=== PATIENT | male | born 1955 | race Caucasian/White ===

== ENCOUNTER 2017-03-13 17:37 | Inpatient (IN) | payer SELFPAY ==
[~2017-03-13] VITALS: Ht 172.7 cm; Wt 73.0 kg
[2017-03-13 17:38] VITALS: BP 144/87; PULSE 91; RESP 20; TEMP 98.5; O2SAT 100
[2017-03-13] MEDS ORDERED: ASPIRIN 81 MG CHEW TAB PO ONE (18:15)
[2017-03-13] MEDS ORDERED: NITROGLYCERIN 0.4 MG SL 25 TABS/BTL SL STA (18:24)
[2017-03-13] MEDS ORDERED: SODIUM CHLOR 0.9% 1000 ML INJ 1,000 ML IV ONE (18:24)
[2017-03-13] MEDS ORDERED: HEPARIN SODIUM - IV 10,000 UNITS/10 ML VIAL IV PUSH STA (18:24)
[2017-03-13] MEDS ORDERED: ASPIRIN 81 MG CHEW TAB PO STA (18:24)
[2017-03-13 18:30] VITALS: O2SAT 99
[2017-03-13] MEDS ORDERED: NITROGLYCERIN-D5W 50 MG/250 ML 250 ML IV PRN (18:30)
[2017-03-13] MEDS ORDERED: SODIUM CHLORIDE 0.9% FLUSH 10 ML FLUSH IVF PRN (18:30)
[2017-03-13] MEDS ORDERED: HEPARIN-NS/PF INJ 1,000 ML ONE (18:30)
[2017-03-13 18:34] VITALS: BP 201/98; PULSE 88; RESP 16; O2SAT 99
--- NOTE | 2017-03-13 18:34 | PD ---
HPI Chief Complaint: STEMI Alert Time Seen by Provider: 18:24 Travel History International Travel<30 days: No Contact w/Intl Traveler<30days: No Traveled to known affect area: No History of Present Illness HPI This is a 61-year-old male with history of tobacco use, and presents here with complaints of chest pressure with associated nausea. The patient states he was out jogging about 3 PM. He states shortly after coming back he felt nauseous and had severe chest discomfort. He states at worst it was an 8-10 out of 10 scale. He was given an aspirin upfront. He comes back now says it subsided somewhat but it still a 6 out of 10. There is no diaphoresis. Positive shortness of breath. The patient has no history of coronary disease. He takes no medication. [facility] Social History Tobacco Use: No Allergies-Medications (Allergen,Severity, Reaction): Coded Allergies: No Known Allergies (Unverified , 03/13/17) Review of Systems Except as stated in HPI: all other systems reviewed are Neg General / Constitutional: No: Fever, Chills HENT: No: Headaches, Lightheadedness, Neck Pain Cardiovascular: Positive: Chest Pain or Discomfort, No: Palpitations, Irregular Rhythm Respiratory: Positive: Shortness of Breath, No: Cough Gastrointestinal: No: Nausea, Vomiting, Abdominal Pain Musculoskeletal: No: Weakness, Pain Neurologic: No: Weakness, Dizziness, Headache Physical Exam Narrative GENERAL: Well developed well-nourished male who appears anxious and slightly diaphoretic. SKIN: Focused skin assessment warm/dry. HEAD: Atraumatic. Normocephalic. EYES: Pupils equal and round. No scleral icterus. No injection or drainage. ENT: No nasal bleeding or discharge. Mucous membranes pink and moist. NECK: Trachea midline. Supple. CARDIOVASCULAR: Regular rate and rhythm. No murmur appreciated. RESPIRATORY: No accessory muscle use. Clear to auscultation. Breath sounds equal bilaterally. GASTROINTESTINAL: Abdomen soft, non-tender, nondistended. MUSCULOSKELETAL: No obvious deformities. No clubbing. No cyanosis. No edema. NEUROLOGICAL: Awake and alert. No obvious cranial nerve deficits. Motor grossly within normal limits. Normal speech. Data Data Last Documented VS Vital Signs Date Time Temp Pulse Resp B/P (MAP) Pulse Ox O2 Delivery O2 Flow Rate FiO2 03/13/17 18:22 Nasal Cannula 2.00 03/13/17 17:38 98.5 91 20 144/87 (106) 100 Orders Orders Electrocardiogram (03/13/17 18:09) Basic Metabolic Panel (Bmp) (03/13/17 18:09) Ckmb (Isoenzyme) Profile (03/13/17 18:09) Complete Blood Count With Diff (03/13/17 18:09) Magnesium (Mg) (03/13/17 18:09) Prothrombin Time / Inr (Pt) (03/13/17 18:09) Act Partial Throm Time (Ptt) (03/13/17 18:09) Troponin I (03/13/17 18:09) Lipase (03/13/17 18:09) Aspirin Chew (Aspirin Chew) (03/13/17 18:15) Chest, Pa & Lat (03/13/17 18:09) Troponin I (03/13/17 18:24) Ckmb (Isoenzyme) Profile (03/13/17 18:24) I-Stat Profile (03/13/17 18:24) I-Stat Creatinine (03/13/17 18:24) Calcium (03/13/17 18:24) Magnesium (Mg) (03/13/17 18:24) Act Partial Throm Time (Ptt) (03/13/17 18:24) B-Type Natriuretic Peptide (03/13/17 18:24) Chest, Single Ap (03/13/17 18:24) Electrocardiogram (03/13/17 18:24) Oxygen Administration (03/13/17 18:24) Iv Access Insert/Monitor (03/13/17 18:24) Oximetry (03/13/17 18:24) Sodium Chlor 0.9% 1000 Ml Inj (Ns 1000 M (03/13/17 18:24) Sodium Chloride 0.9% Flush (Ns Flush) (03/13/17 18:30) Aspirin Chew (Aspirin Chew) (03/13/17 18:24) Nitroglycerin Sl (Nitrostat Sl) (03/13/17 18:24) Nitroglycerin-D5w 50 Mg/250 Ml (Nitrogly (03/13/17 18:30) Heparin Inj (Heparin Inj) (03/13/17 18:24) Cardiac Catheterization (03/13/17 18:27) MDM Medical Decision Making Medical Screen Exam Complete: Yes Emergency Medical Condition: Yes Differential Diagnosis ACS versus GERD versus musculoskeletal pain Narrative Course [id number] male presents here after feeling chest pain with associated nausea and shortness of breath after jogging. The patient has an obvious inferior wall ST elevation WI. Patient was made a STEMI alert. Case discussed with Dr. Chaudhry, on-call hat copyist for STEMI alerts. He is on his way in to take the patient to the Benefits Officer. The patient has been given aspirin in the triage area. He's also been given 4200 units of heparin. Diagnosis Primary Impression: ST elevation WI (STEMI) Additional Impression: Tobacco use Admitting Information Admitting Physician Requests: Admit Kiran Mock MD Mar 13, 2017 18:34
[2017-03-13 18:47] LABS: I-STAT POTASSIUM 4.8 MMOL/L (3.5-4.9)
[2017-03-13 18:50] VITALS: BP 167/89
[2017-03-13 18:51] LABS: AUTOMATED NEUTROPHIL # 15.9 TH/MM3 (1.8-7.7); BASOPHIL # 0.1 TH/MM3 (0-0.2); BASOPHIL % 0.3 % (0.0-2.0); EOSINOPHIL % 0.1 % (0.0-4.0); HEMATOCRIT 42.8 % (39.0-51.0); HEMO FLAGS DIFF FINAL; LYMPH % 10.6 % (9.0-44.0); MEAN CELL VOLUME 86.2 FL (80.0-100.0); MEAN CORPUSCULAR HEMOGLOBIN 30.5 PG (27.0-34.0); MEAN CORPUSCULAR HGB CONC 35.4 % (32.0-36.0); MONO % 4.3 % (0.0-8.0); NEUT % 84.7 % (16.0-70.0); PLATELET COUNT 306 TH/MM3 (150-450); RED BLOOD COUNT 4.97 MIL/MM3 (4.50-5.90); RED CELL DISTRIBUTION WIDTH 13.5 % (11.6-17.2); WHITE BLOOD COUNT 18.8 TH/MM3 (4.0-11.0)
[2017-03-13] MEDS ORDERED: IOHEXOL 350 MG/ML 100 ML BTL (for Cath Lab) OTHER ONE (18:54)
[2017-03-13 18:58] LABS: APTT (PATIENT) 24.8 SEC (24.3-30.1); INTERNATIONAL NORMALIZED RATIO 0.9 RATIO
[2017-03-13 19:02] LABS: ANION GAP 8 MEQ/L (5-15); BICARBONATE 28.5 MEQ/L (21.0-32.0); BLOOD UREA NITROGEN 16 MG/DL (7-18); CHLORIDE 102 MEQ/L (98-107); GLOMERULAR FILTRATION RATE 61 ML/MIN (>89); MAGNESIUM 2.2 MG/DL (1.5-2.5); POTASSIUM 4.7 MEQ/L (3.5-5.1); SODIUM (NA) 138 MEQ/L (136-145)
[2017-03-13 19:06] LABS: CREATINE KINASE 102 U/L (39-308)
--- NOTE | 2017-03-13 19:10 | RADRPT ---
EXAM DATE/TIME: 03/13/2017 18:33 [place] COMPARISON: No previous studies available for comparison. INDICATIONS : Stemi alert. Chest pain. MEDICAL HISTORY : None. SURGICAL HISTORY : None. ENCOUNTER: Initial ACUITY: 1 day PAIN SCORE: 2/10 LOCATION: chest FINDINGS: A single view of the chest demonstrates the lungs to be symmetrically aerated without evidence of mas s, infiltrate or effusion. The cardiomediastinal contours are unremarkable. Osseous structures are intact. CONCLUSION: No acute cardiopulmonary process. Parth Rodrigues MD on March 13, 2017 at 19:08 Board Certified Radiologist. This report was verified electronically.
[2017-03-13] MEDS ORDERED: SODIUM NITROPRUSSIDE 50 MG/2 ML VIAL ONE ×2 (19:11→19:16)
[2017-03-13] MEDS ORDERED: HEPARIN SODIUM - IV 10,000 UNITS/10 ML VIAL ONE (19:15)
[2017-03-13] MEDS ORDERED: PRASUGREL 10 MG TAB ONE (19:26)
[2017-03-13] MEDS ORDERED: TIROFIBAN INFUSION INJ 250 ML IV ONE (19:26)
[2017-03-13] MEDS ORDERED: HEPARIN-NS/PF INJ 500 ML ONE (19:34)
--- NOTE | 2017-03-13 19:49 | CATHPROC ---
[place] HIS Report Study Information Study Number Admission Scheduled Start Study Start [id number] Mar 13 2017 5:37PM 03/13/2017 Mar 13 2017 6:35PM [place] Service Cardiac Catheterization Admit Source Facility Department Emergency department [facility] - [facility] Physician and Clinical Staff Initial Tobias Steve Lumber Tripper Khadra Gutierrez RN Lumber Tripper Day Arce BSN Lumber Tripper Claudette Ovalles RN Lumber Tripper Magnolia Groves RN Recorder Brandee Ngo RT(R) (BS) Scrub Carmelo Michel RCIS(BS) Procedures Performed Procedure Location (Site) Vessel Name Coronary Angiograms LCA Left Coronary Coronary Angiograms RCA Right Coronary L Heart Cath LV Gram-hand inj. LV LV Ventricle Stent OM1 Prox CIRC Wire insertion Fem Art (right) Femoral Art Equipment Time Top Executive Description Size Mfg Part Number Used/Scraped [id number] 19:07 [employer] WIRE, ASAHI PROWATER 180CM 180CM Used *[id number] TRANSDUCER, TRUWAVE [id number] 19:05 LANDAVERDE CORTES * Used W/STOCKCOCK *[id number] [id number] *[phone] *[id number] [id number] *[id number] [phone] *[id number] [phone] *[id number] [phone] *[id number] 19:05 [employer] INDUSTRIES PACK, CCL CUSTOM * Used *[id number] 19:04 [employer] PACER PEN, SKIN DUAL W/ RULER * Used *[id number] 19:20 [employer] BALLOON, 2.0 X 6MM EUPHORA 6MM Used *[id number] 19:16 [employer] BALLOON, 2.0 X 6MM EUPHORA 6MM Used *[id number] 19:22 [employer] STENT, 2.5 12 INTEGRITY 2.5 12 Used *[id number] 19:24 [email or web address] MEDICAL 30 EUGENIO INDEFLATOR Used *[id number] 19:05 [email or web address] MEDICAL SHEATH, FR6.5 PRELUDE 11CM FR 6.5 038ACT Used *[id number] 19:04 [email or web address] MEDICAL WIRE, 3MMJ .035 180CM 180CM Used *[id number] 19:05 NAMIC MANIFOLD, 4 PORT * Used *[id number] 19:04 [employer] OMNIPAQUE, 350 MG, 150ML 150ML [id number] Used 19:05 [employer]COMED OMNIPAQUE, 350 MG, 150ML 150ML [id number] Used [id number] 19:04 [facility] BLANKET,WARM AIR CCL * Used *[id number] Equipment Model, Serial, Lot Number and Expiration Data Description Model Number Serial Number Lot Number Expiration Date STENT, 2.5 12 INTEGRITY [id number] 08-09-2018 History: Current Medications Medication Dosage/Unit Route Frequency Last Date/Time Taken ASA NTG SL History: Allergies Allergy Reaction No Known Allergies History: Risk Factors Family History of Hypertension Dyslipidemia Previous CA Previous Heart Failure Premature CAD No No No No No Prior Valve Prior PCI Prior CABG Surgery No No No Cerebrovascular Peripheral Artery Chronic Lung On Dialysis Diabetes Disease Disease Disease No No No No No History: Symptoms/Diagnosis Selection Items Chest pain History: Stress Tests Stress or Imaging Studies Performed No History: Other Current Smoker Method Yes Cigarettes Labs Hgb (g/dl) Hct (%) RBC (MIL/MM3) WBC (l/cumm) Platelets (thousands) 11.60-17.00 35.00-51.00 4.00-5.90 4.00-11.00 150.00-450.00 15.2 42.8 4.9 18.8 306 Glucose (mg/dl) BUN (mg/dl) 74.00-106.00 7.00-18.00 165 16 Na (meq/l) K (meq/l) Cl (meq/l) CO2 (mmol/L) 136.00-145.00 3.50-5.10 98.00-107.00 21.00-32.00 138 4.7 102 28.5 PT (sec) INR (PTT:PT) 9.80-11.60 0.90-1.10 10 0.9 Troponin I (ng/ml) CPK-MB (ng/ML) 0.02-0.05 0.50-3.60 0.28 Not Drawn Medication Medication Total Dose (Bolus/Oral) Medication Total Dosage/Unit 1% XYLOCAINE 20 mL AGGRASTAT BOLUS 0.5 meq/kg EFFIENT 60 mg HEPARIN 4000 units Medications (Bolus/Oral) Medication Time Given Dosage/Unit Administered By Reason 1% XYLOCAINE 03/13/2017 7:08:47 PM 20 mL Tobias Chaudhry 20 mL 1% XYLOCAINE given in lab by Tobias Chaudhry in Right Groin via Subcutaneous. HEPARIN 03/13/2017 7:16:43 PM 4000 units [place] 4000 units HEPARIN given in lab by Magn[place]ves, CHRISTEN in Right Antecubital via Peripheral IV. AGGRASTAT BOLUS 03/13/2017 7:31:27 PM 0.5 meq/kg Claudette Ovalles 0.5 meq/kg AGGRASTAT BOLUS given in lab by Claudette Ovalles, CHRISTEN in Right Antecubital via Peripheral IV . Amount given = 35.9 meq. EFFIENT 03/13/2017 7:45:10 PM 60 mg Claudette Ovalles 60 mg EFFIENT given in lab by Claudette Ovalles, CHRISTEN via Oral. Medication (Drip) Medication Time Given Dosage/Unit Concentration/Unit Diluent (ml) Solution AGGRASTAT DRIP 03/13/2017 7:33:51 PM 0.15 mcg/kg/min 12.5 mg 250 NaCl .9 0.15 mcg/kg/min AGGRASTAT DRIP given in lab by Magnolia [place]ves, CHRISTEN in Right Antecubital via Periphera l IV. Pump/Drip Flow = 12.9 ml/hr using NaCl .9 with a concentration of 12.5 mg in 250 ml. IV Solutions 03/13/2017 6:57:30 PM 0 mL (IV) 500 NaCl .9 Patient arrived on IV Solutions in Left Antecubital via Peripheral IV. Pump/Drip Flow = 30 ml/hr usin g NaCl .9. NITROGLYCERIN DRIP 03/13/2017 6:57:26 PM 33.333 mcg/min 50 mg 250 D5W Patient arrived on 33.333 mcg/min NITROGLYCERIN DRIP in Right Antecubital via Peripheral IV. Pump/Dri p Flow = 10 ml/hr using D5W with a concentration of 50 mg in 250 ml. NITROGLYCERN DRIP 03/13/2017 7:30:55 PM 0 units/hr 0 STOPPED 0 units/hr NITROGLYCERN DRIP STOPPED given in lab by Claudette Ovalles, CHRISTEN. Pump/Drip Flow = 0 ml/hr us ing [Solution Name]. Initial Case Assessment Cardiovascular HR Rhythm NIBP Chest Pain 82 reg 169/109 0 Edema Present Skin color Skin None Normal Warm Dry Circulatory - Right Pulses Dorsalis Pedis Femoral 2 2 Scale (0,1,2,3,4,d) Circulatory - Left Pulses Dorsalis Pedis Femoral 2 2 Scale (0,1,2,3,4,d) Circulatory - Lower Extremities Color Lower Right Color Lower Left Normal Normal Neurological State Oriented to time-place- Alert Moves all extremities person Respiration - General Respiration Rate SpO2 (%) (B/min) 18 100 Chronological Log Time Study Chronological Log 18:31:20 3 TEAM MEMBERS HERE (SH, DT, AW) TOLD ED TO BRING PATIENT TO LAB NOW 18:49:35 ED CALLED SAID THEY ARE JUST LEAVING WITH PATIENT 18:54:58 Patient arrived via Bed. 18:57:04 Patient Name, D.O.B, / Armband Verified By R.N. 18:57:05 Consent signed by the physician and the patient and verified by the [facility] staff. 18:57:06 Pre-op and post- op instructions given; patient acknowledges understanding of instructions. 18:57:07 Verbal Stimulation=2 Physical Stimulation=2 Airway=2 Respiration=2 TOTAL=8. (0=absent, 1=li mited, 2=present) 18:57:08 Presedation assessment performed by [facility] Tender RN. 18:57:10 Patient has been NPO for More than 6Hrs. 18:57:11 Skin Breakdown none per pt 18:57:12 Patient Warmer Placed on the Table. 18:57:13 Disposable Defibrillator Pads Placed On Patient ARRIVED ON 18:57:23 Gricelda Prominences Protected 18:57:24 A # 20 IV was noted in the Antecubital (right). Grade = 0 Patient arrived on 33.333 mcg/min NITROGLYCERIN DRIP in Right Antecubital via Peripheral IV. Pu mp/Drip Flow = 10 18:57:26 ml/hr using D5W with a concentration of 50 mg in 250 ml. 18:57:27 History and physical on the chart or being dictated. 18:57:30 Patient arrived on IV Solutions in Left Antecubital via Peripheral IV. Pump/Drip Flow = 30 ml/hr using NaCl .9. Assessment: Initial Case, HR=82 BPM, Rhythm=reg, WMWU=989/109 mmhg, Chest Pain=0, Edema=None, Color=Normal, Skin = Warm, Dry Right Pulses: Ankit Ped=2, Femoral=2 Left Pulses: Ankit Ped=2, Femoral=2 18:57:38 Lower Right Extremities: Color=Normal Lower Left Extremities: Color=Normal Neurological: State=Alert, Ox3, IBRAHIM Respiration: Resp=18 B/min, LeY9=123 % 18:59:10 SILVIA TOLD PATIENT HAS ARRIVED TO LAB Vitals capture started with the following parameters, Patient=Adult, Interval=5 min, Initial Pr fengmv=276 mmHg, 19:01:16 Deflation Rate=5 mmHg, Cuff placed on Left Arm 19:02:32 HR=97 bpm, BVNJ=790/109 mmhg, SpO2=99.0 %, Resp=21 B/min, Pain=0, Frankie=10, Lane=2 Time Out. Correct patient, correct procedure, correct physician, power injector not loaded with contrast with surgical 19:06:29 team present. Time Out Concurred by MD and individual staff in procedure. 19:06:43 Case Start 19:06:58 HR=86 bpm, SHRG=450/95 mmhg, HqY7=866.0 %, Resp=14 B/min, Pain=0, Frankie=10, Lane=2 19:08:47 20 mL 1% XYLOCAINE given in lab by Tobias Chaudhry in Right Groin via Subcutaneous. 19:08:55 Access site was Right Femoral Artery. 19:09:00 A SHEATH, FR6.5 PRELUDE 11CM FR 6.5 was advanced into the Fem Art (right) using the Percuta neous technique. 19:09:17 Activated Clotting Time Drawn 19:09:30 Reference ECG taken A JR 4.0 GUIDE CATHETER FR 6 was advanced over a wire. OMNIPAQUE, 350 MG, 150ML 150ML was used for 19:11:36 injections. Recorded Pressure: Ao, HR=81, Condition=Condition 1 19:11:53 (Aorta) Ao 165/91/123 19:11:59 HR=82 bpm, TZJX=173/93 mmhg, CkP1=739.0 %, Resp=16 B/min, Pain=0, Frankie=10, Lane=2 19:12:04 The RCA was injected and visualized at various angles. OMNIPAQUE, 350 MG, 150ML 150ML used . 19:13:00 ACT (Normal Range 90-180) = 187 19:13:26 Catheter was removed A JL 4.0 INFINITI CATHETER FR 4 was advanced over a wire. OMNIPAQUE, 350 MG, 150ML 150ML was us ed for 19:13:27 injections. 19:14:44 The LCA was injected and visualized at various angles. OMNIPAQUE, 350 MG, 150ML 150ML used . 19:16:05 Catheter was removed 19:16:43 4000 units HEPARIN given in lab by Magnolia Groves, CHRISTEN in Right Antecubital via Peripheral IV. 19:17:00 HR=83 bpm, QJHH=038/90 mmhg, FtH5=324.0 %, Resp=10 B/min, Pain=0, Frankie=10, Lane=2 A XB 4.0 GUIDE CATHETER FR 6 was advanced over a wire. OMNIPAQUE, 350 MG, 150ML 150ML was used for 19:17:10 injections. 19:18:48 A WIRE, ASAHI PROWATER 180CM 180CM was inserted via Fem Art (right). 19:19:33 Interventional wire has crossed the lesion 19:21:57 HR=87 bpm, NJNB=212/101 mmhg, AzM0=143.0 %, Resp=10 B/min, Pain=0, Frankie=10, Lane=2 An STENT, 2.5 12 INTEGRITY 2.5 12 Bare Metal Stent was inserted through a XB 4.0 GUIDE CATHETER FR 6 over a 19:22:33 WIRE, ASAHI PROWATER 180CM 180CM. A STENT, 2.5 12 INTEGRITY 2.5 12 was deployed using a 30 EUGENIO INDEFLATOR at 10 atmospheres for 1 5 seconds in 19:23:29 the OM1 Prox. 19::33 Delivery device removed 19:26:58 HR=78 bpm, UPKL=480/80 mmhg, IkS6=213.0 %, Resp=10 B/min, Pain=0, Frankie=10, Lane=2 A JR 4.0 INFINITI CATHETER FR 4 was advanced over a wire. OMNIPAQUE, 350 MG, 150ML 150ML was u sed for 19:27:11 injections. Recorded Pressure: LV, HR=82, Condition=Condition 1 19:27:55 (Left Ventricle) LV 146/21/34 Recorded Pressure: LV, Ao, HR=81, Condition=Condition 1 19:27:59 (Left Ventricle) LV 149/21/35, (Aorta) Ao 151/81/113 19:28:03 The LV was manually injected with 8 cc's and visualized. OMNIPAQUE, 350 MG, 150ML 150ML us ed. 19:28:48 Catheter was removed 19:28:53 Case End 19:28:56 Activated Clotting Time Drawn 0 units/hr NITROGLYCERN DRIP STOPPED given in lab by Claudette Ovalles, CHRISTEN. Pump/Drip Flow = 0 m l/hr using 19:30:55 [Solution Name]. 0.5 meq/kg AGGRASTAT BOLUS given in lab by Claudette Ovalles, RN in Right Antecubital via Periph eral IV. Amount 19:31:27 given = 35.9 meq. 19:31:57 HR=71 bpm, PTZP=847/75 mmhg, LdZ1=974.0 %, Resp=8 B/min, Pain=0, Frankie=10, Lane=2 19:32:21 Catheter(s) removed without difficulty 19:32:26 In the Fem Art (right) the SHEATH, FR6.5 PRELUDE 11CM FR 6.[address] by Carmelo Jules RCIS(BS). 19:32:46 No case complications noted. 19:32:50 Sterile dressing applied to site 19:32:56 A Left Heart Cath was performed. 0.15 mcg/kg/min AGGRASTAT DRIP given in lab by Magnolia Groves RN in Right Antecubital via Pe ripheral IV. 19:33:51 Pump/Drip Flow = 12.9 ml/hr using NaCl .9 with a concentration of 12.5 mg in 250 ml. 19:34:04 ACT (Normal Range 90-180) = 253 19:36:54 HR=77 bpm, JWWF=372/79 mmhg, JuU2=123.0 %, Resp=12 B/min, Pain=0, Frankie=10, Lane=2 19:41:55 HR=78 bpm, YDFL=157/79 mmhg, TvF3=183.0 %, Resp=30 B/min, Pain=0, Frankie=10, Lane=2 19:45:10 60 mg EFFIENT given in lab by Claudette Ovalles, RN via Oral. 19:47:00 HR=79 bpm, LSVC=766/75 mmhg, Resp=25 B/min, Pain=0, Frankie=10, Lane=2 19:48:40 Vitals capture stopped. 19:49:44 [facility] - Contrast Media Used In Study Contrast Total Opened (mL) Total Used (mL) Total Wasted (mL) Omnipaque 90 90 0 End Study - Radiation Exposure Fluoro Time (minutes) 4.1 End Study - Patient Disposition Complications Transferred To Interventional Outcome No Critical Care Bed successful
[2017-03-13 20:00] VITALS: BP_SYST 144; BP_SYST 145; BP_DIAS 82; BP_DIAS 85; PULSE 81; RESP 20; TEMP 98; O2SAT 98
[2017-03-13] MEDS ORDERED: MISC INFORMATION XX ONE (20:00)
[2017-03-13] MEDS ORDERED: PRASUGREL 10 MG TAB PO ONE (20:00)
[2017-03-13] MEDS ORDERED: SODIUM CHLORIDE 0.9% FLUSH 10 ML FLUSH IV FLUSH PRN (20:00)
--- NOTE | 2017-03-13 20:36 | MB ---
cc: TOBIAS VEGA M.D. DATE OF CONSULTATION 03/13/2017 HISTORY OF THE PRESENT ILLNESS Godwin is a very pleasant 61-year-old gentleman with history of tobacco use. Otherwise no significant past medical history. He was out jogging today, he developed severe chest pain, 8/10 associated with nauseousness. Came to the ER found have an inferior injury pattern. He also admits to dyspnea but no diaphoresis. Further review of symptoms negative for fever or chills, cough, GI or bleeding, paroxysmal nocturnal dyspnea, orthopnea, syncope or dizziness. PAST MEDICAL HISTORY Per the history of present illness. SOCIAL HISTORY He does smoke. Denies alcohol use. ALLERGIES None. MEDICATIONS Given in the emergency room: 1. Aspirin. 2. Heparin bolus. PHYSICAL EXAMINATION VITAL SIGNS: Blood pressure 144/87, pulse 71, respiratory 20, temperature 98.5. Sats 100% on room air. GENERAL: He is alert and oriented times three in no acute distress. NECK: Supple. No JVD or bruit. CARDIOVASCULAR: Normal S1-S2. No murmurs, rubs, or gallops. LUNGS: Clear to auscultation bilaterally. ABDOMEN: Soft and nontender. Nondistended. Positive bowel sounds. EXTREMITIES: No lower extremity edema. LABORATORY DATA White count 18.8, hemoglobin 15.2, hematocrit 42.8, platelet count 306. Sodium 138, potassium 4.7, chloride 102, bicarb 28.5, BUN 16, creatinine 1.21. Glucose 165. Troponin is 0.28. CK 102. BNP 13. Magnesium 2.2. INR 0.9. IMAGING Chest x-ray no acute cardiopulmonary process. EKG is not available. However, I did see it in the clinical lab clerk and he had 2-[address]-segment elevation with a small Q-wave in lead III. ST elevation was in lead II, III, aVF. DIAGNOSES So he has the following diagnoses: 1. ST-elevation myocardial infarction. 2. Tobacco abuse. 3. [place] Cardiovascular Society class IV angina. DISCUSSION At this point in time a STEMI alert has been called and plan is for emergent left heart catheterization. The patient has already received aspirin and heparin bolus in the ER. Currently at the bedside he is chest pain free. On the monitor the ST segments appear to have improved and almost resolved. Tobias Vega MD [email or web address] 8:01 PM 8:21 PM
[2017-03-13] MEDS ORDERED: ATORVASTATIN 10 MG TAB PO SCH (21:00)
[2017-03-13] MEDS: CARVEDILOL 3.125 MG TAB PO SCH (22:48)
[2017-03-13] MEDS: SODIUM CHLORIDE 0.9% FLUSH 10 ML FLUSH IV FLUSH SCH (22:49)
[2017-03-13] MEDS: TIROFIBAN INFUSION INJ 250 ML IV SCH (22:54)
[2017-03-13 23:00] VITALS: BP 143/84; PULSE 78; PULSE 86; RESP 18; TEMP 98.9; O2SAT 98
[2017-03-14 03:00] VITALS: BP 144/83; PULSE 76; PULSE 77; RESP 18; TEMP 98.5; O2SAT 98
[2017-03-14 05:55] LABS: AUTOMATED NEUTROPHIL # 8.9 TH/MM3 (1.8-7.7); BASOPHIL % 0.3 % (0.0-2.0); EOSINOPHIL % 0.2 % (0.0-4.0); HEMATOCRIT 41.1 % (39.0-51.0); HEMO FLAGS DIFF FINAL; LYMPH % 21.8 % (9.0-44.0); LYMPHOCYTE # 2.8 TH/MM3 (1.0-4.8); MEAN CELL VOLUME 86.7 FL (80.0-100.0); MEAN CORPUSCULAR HEMOGLOBIN 28.8 PG (27.0-34.0); MEAN CORPUSCULAR HGB CONC 33.3 % (32.0-36.0); MONO % 7.3 % (0.0-8.0); NEUT % 70.4 % (16.0-70.0); PLATELET COUNT 281 TH/MM3 (150-450); RED BLOOD COUNT 4.74 MIL/MM3 (4.50-5.90); RED CELL DISTRIBUTION WIDTH 13.9 % (11.6-17.2); WHITE BLOOD COUNT 12.7 TH/MM3 (4.0-11.0)
[2017-03-14 06:27] LABS: BICARBONATE 26.9 MEQ/L (21.0-32.0); POTASSIUM 4.2 MEQ/L (3.5-5.1)
[2017-03-14 06:40] LABS: HDL CHOLESTEROL 36.6 MG/DL (40.0-60.0); INDIRECT BILIRUBIN 0.4 MG/DL (0.0-0.8); TOTAL BILIRUBIN ADULT 0.5 MG/DL (0.2-1.0)
[2017-03-14 07:00] VITALS: BP_SYST 114; BP_SYST 154; BP_DIAS 62; BP_DIAS 90; PULSE 63; PULSE 75; PULSE 81; RESP 14; RESP 16; TEMP 98.3; TEMP 98.9; O2SAT 97
[2017-03-14 07:07] LABS: CKMB 176.1 NG/ML (0.5-3.6)
--- NOTE | 2017-03-14 07:24 | MA ---
cc: PARVEEN VEGA M.D. DATE 03/13/2017 PROCEDURE PERFORMED Left heart catheterization, left ventriculography, coronary angiography, PCI with bare metal stent of the second obtuse marginal vessel. INDICATIONS 1. STEMIO, coronary disease. 2. [place] Cardiovascular Society class IV angina. PROCEDURE The patient was brought to the cardiac catheterization laboratory, prepped and draped in the usual sterile fashion. 10 cc's of 1% lidocaine was used to locally anesthetize the right common femoral artery. A 6-Chinese sheath placed in the right common femoral artery. I actually went up with a 6-Chinese JR-4 guide. Note, I had to steer the 0.035 J-tip guidewire due to fibrocalcific at the ostium of the right common iliac artery. Thereafter, all catheter exchanges were done over a long 0.035 J-tipped guidewire. The right coronary artery was dominant. There was a long proximal 80% stenosis. Note at this time, the ST elevation on the telemetry leads had mostly resolved. There was slight ST elevation in lead two and five of about 1 mm. The left main coronary artery has no significant disease angiographically. The left circumflex vessel has mild diffuse disease in the proximal segment up to 20% angiographically. It is very tortuous in the mid segment and gives off a medium-sized obtuse marginal vessel with an ostial 50% stenosis. The second obtuse marginal vessel comes off medially thereafter. This first obtuse marginal vessel is subtotally occluded with JOCY I to II flow into the distal vessel. Just beyond this obtuse marginal vessel, there is a 70% stenosis and then the AV groove left circumflex supplies a small posterolateral artery distally. The LAD is transapical, has mild diffuse disease in the proximal mid segment up to 10-20% angiographically. The first diagonal artery is a small artery with no significant disease angiographically. The second diagonal artery is a small vessel with no significant disease angiographically. The third diagonal artery is a small to medium size vessel with a proximal 80% stenosis. DISCUSSION Interestingly enough, the ST elevation was in the inferior leads. There was an 80% proximal right coronary stenosis over the subtotally occluded vessel with a second obtuse marginal vessel as detailed above. Therefore, it was slightly indeterminate as to which was the culprit vessel. Certainly one could consider fibrinolysis of the of the potential clot in the right coronary artery or simultaneous clotting in the right and the obtuse marginal vessel with resolution in the right. Nevertheless, it was the OM that was still subtotally occluded, therefore, it felt it was reasonable to perform PCI of the obtuse marginal vessel. The initial ACT after 4000 units of heparin in the ER was 185. An additional 3500 units heparin was given. ACT was 253. 6-Chinese XB 4.0 guide, 0.014 Prowater guidewire was used to cross the second obtuse marginal vessel. It was slightly difficult due to vessel tortuosity, but with torquing of the wire, I was able to pass the wire into the distal vessel. I was then able to directly stent the lesion with a 25 x 12 integrity stent with one inflation to 10 atmospheres for 20 seconds. The stenosis went from 99% with JOCY-I to II flow to 0% with JOCY-III flow. CONCLUSION 1. STEMI somewhat indeterminate culprit lesion either an occluded right with reperfusion and simultaneous subtotally occluded obtuse marginal vessel or possibly the obtuse marginal vessel being somewhat of an atypical culprit with inferior ST elevation. 2. Otherwise, severe three-vessel coronary artery disease in a right-dominant system as detailed above. Also note above, the LV pressures were 145/28-27, EF 60%. 3. The ejection fraction is 60%. No segmental wall motion abnormality in the LUIS view. 4. Successful direct PCI bare metal stent of the second obtuse from 99% with JOCY-I to II flow to 0% with JOCY-III flow. RECOMMENDATIONS Prasugrel 60 mg p.o. load then 10 mg daily for 12-15 months, aspirin 162 mg daily, Aggrastat drip. I have strongly advised the patient to stop smoking. We will check fasting lipids, follow and NCCP guidelines. If the patient has more chest pain post procedure tomorrow, we will consider PCI of the diagonal vessel or the right coronary artery. If he remains asymptomatic, we will treat these medically. MD CUCO Kaplan/JAYLEEN /7:31 PM /6:50 AM
[2017-03-14] MEDS: TIROFIBAN INFUSION INJ 250 ML IV SCH (07:50)
[2017-03-14] MEDS: SODIUM CHLORIDE 0.9% FLUSH 10 ML FLUSH IV FLUSH SCH (09:00)
[2017-03-14] MEDS ORDERED: RAMIPRIL 2.5 MG CAP PO SCH (09:00)
[2017-03-14] MEDS ORDERED: ASPIRIN 81 MG CHEW TAB PO SCH (09:00)
[2017-03-14] MEDS ORDERED: PRASUGREL 10 MG TAB PO SCH (09:00)
[2017-03-14] MEDS: CARVEDILOL 3.125 MG TAB PO SCH (09:17)
[2017-03-14 11:00] VITALS: BP 126/79; PULSE 81; RESP 14; TEMP 98.6; O2SAT 97
--- NOTE | 2017-03-14 14:08 | PD.CARD.PN ---
Subjective Subjective Remarks alert in nad, feels better, denies chest pain Objective Medications Current Medications Medications (Trade) Dose Ordered Sig/Marlon Route Start Time Stop Time Status Last Admin Nitroglycerin/ Dextrose 250 ml @ 3 mls/hr TITRATE PRN IV 03/13/17 18:30 03/13/17 18:44 (NS Flush) 2 ml UNSCH PRN IV FLUSH 03/13/17 20:00 (NS Flush) 2 ml BID IV FLUSH 03/13/17 21:00 03/14/17 09:00 (Aspirin Chew) 162 mg DAILY PO 03/14/17 09:00 03/14/17 09:18 (Effient) 10 mg DAILY PO 03/14/17 09:00 03/14/17 09:19 (Coreg) 3.125 mg BID PO 03/13/17 21:00 03/14/17 09:17 (Altace) 2.5 mg DAILY PO 03/14/17 09:00 03/14/17 09:18 (Lipitor) 10 mg HS PO 03/13/17 21:00 03/13/17 22:48 Vital Signs / I&O Vital Signs Date Time Temp Pulse Resp B/P (MAP) Pulse Ox O2 Delivery O2 Flow Rate FiO2 03/14/17 07:00 98.3 75 14 154/90 (111) 97 03/14/17 07:00 97 Nasal Cannula 2.00 03/14/17 03:00 76 03/14/17 03:00 98.5 77 18 144/83 (103) 98 Arterial Line 03/13/17 23:00 98.9 86 18 143/84 (103) 98 03/13/17 23:00 78 03/13/17 20:00 98.0 81 20 145/82 (103) 98 144/85 (104) 03/13/17 20:00 81 03/13/17 20:00 98 Room Air 03/13/17 19:11 74 144/69 03/13/17 18:50 82 20 167/89 (115) 99 Nasal Cannula 2.00 03/13/17 18:44 80 182/96 03/13/17 18:34 88 16 201/98 (132) 99 Nasal Cannula 2.00 03/13/17 18:30 Nasal Cannula 2.00 03/13/17 18:30 99 03/13/17 18:22 Nasal Cannula 2.00 03/13/17 17:38 98.5 91 20 144/87 (106) 100 Room Air I/O 03/13/17 03/13/17 03/13/17 03/14/17 03/14/17 03/14/17 07:00 15:00 23:00 07:00 15:00 23:00 Intake Total 405 ml Output Total 650 ml Balance -245 ml Intake Oral 240 ml IV Total 165 ml Output Urine Total 650 ml # Bowel Movements 0 Physical Exam GENERAL: SKIN: Warm and dry. HEAD: Normocephalic. EYES: No scleral icterus. No injection or drainage. NECK: Supple, trachea midline. No JVD or lymphadenopathy. CARDIOVASCULAR: Regular rate and rhythm without murmurs, gallops, or rubs. RESPIRATORY: Breath sounds equal bilaterally. No accessory muscle use. GASTROINTESTINAL: Abdomen soft, non-tender, nondistended. MUSCULOSKELETAL: No cyanosis, or edema. BACK: Nontender without obvious deformity. No CVA tenderness. Laboratory Laboratory Tests Test 03/13/17 18:24 03/13/17 18:29 03/14/17 04:51 Bedside Hemoglobin 16.0 G/DL Bedside Hematocrit 47.0 % Bedside Sodium 140 MMOL/L Bedside Potassium 4.8 MMOL/L Bedside Chloride 101 MMOL/L Bedside Blood Urea Nitrogen 19 MG/DL Bedside Creatinine 1.2 MG/DL Bedside Glucose 169 MG/DL B-Type Natriuretic Peptide 13 PG/ML White Blood Count 18.8 TH/MM3 12.7 TH/MM3 Red Blood Count 4.97 MIL/MM3 4.74 MIL/MM3 Hemoglobin 15.2 GM/DL 13.7 GM/DL Hematocrit 42.8 % 41.1 % Mean Corpuscular Volume 86.2 FL 86.7 FL Mean Corpuscular Hemoglobin 30.5 PG 28.8 PG Mean Corpuscular Hemoglobin Concent 35.4 % 33.3 % Red Cell Distribution Width 13.5 % 13.9 % Platelet Count 306 TH/MM3 281 TH/MM3 Mean Platelet Volume 8.2 FL 8.3 FL Neutrophils (%) (Auto) 84.7 % 70.4 % Lymphocytes (%) (Auto) 10.6 % 21.8 % Monocytes (%) (Auto) 4.3 % 7.3 % Eosinophils (%) (Auto) 0.1 % 0.2 % Basophils (%) (Auto) 0.3 % 0.3 % Neutrophils # (Auto) 15.9 TH/MM3 8.9 TH/MM3 Lymphocytes # (Auto) 2.0 TH/MM3 2.8 TH/MM3 Monocytes # (Auto) 0.8 TH/MM3 0.9 TH/MM3 Eosinophils # (Auto) 0.0 TH/MM3 0.0 TH/MM3 Basophils # (Auto) 0.1 TH/MM3 0.0 TH/MM3 CBC Comment DIFF FINAL DIFF FINAL Differential Comment Prothrombin Time 10.0 SEC Prothromb Time International Ratio 0.9 RATIO Activated Partial Thromboplast Time 24.8 SEC Blood Urea Nitrogen 16 MG/DL 13 MG/DL Creatinine 1.21 MG/DL 0.90 MG/DL Random Glucose 165 MG/DL 129 MG/DL Calcium Level 9.4 MG/DL 9.0 MG/DL Magnesium Level 2.2 MG/DL Sodium Level 138 MEQ/L 138 MEQ/L Potassium Level 4.7 MEQ/L 4.2 MEQ/L Chloride Level 102 MEQ/L 104 MEQ/L Carbon Dioxide Level 28.5 MEQ/L 26.9 MEQ/L Anion Gap 8 MEQ/L 7 MEQ/L Estimat Glomerular Filtration Rate 61 ML/MIN 86 ML/MIN Total Creatine Kinase 102 U/L 1578 U/L Creatine Kinase MB 4.0 NG/ML 176.1 NG/ML Troponin I 0.28 NG/ML Lipase 152 U/L Total Protein 6.9 GM/DL Albumin 3.5 GM/DL Alkaline Phosphatase 97 U/L Aspartate Amino Transf (AST/SGOT) 242 U/L Alanine Aminotransferase (ALT/SGPT) 45 U/L Total Bilirubin 0.5 MG/DL Direct Bilirubin 0.1 MG/DL Indirect Bilirubin 0.4 MG/DL Creatine Kinase MB % 11.2 % Triglycerides Level 133 MG/DL Cholesterol Level 259 MG/DL LDL Cholesterol 196 MG/DL HDL Cholesterol 36.6 MG/DL Cholesterol/HDL Ratio 7.07 RATIO Imaging Last 24 hours Impressions Chest X-Ray 03/13/17 1224 Signed Impressions: Service Date/Time: Monday, March 13, 2017 18:33 - CONCLUSION: No acute cardiopulmonary process. Parth Rodrigues MD Assessment and Plan Problem List: (1) CAD (coronary artery disease) ICD Codes: I25.10 - Atherosclerotic heart disease of [place] coronary artery without angina pectoris (2) Tobacco use ICD Codes: Z72.0 - Tobacco use Status: Acute (3) ST elevation PA (STEMI) ICD Codes: I21.3 - ST elevation (STEMI) myocardial infarction of unspecified site Status: Acute Assessment and Plan 1.) CAD - pod #1 pci bms om2, ok to dc on aspirin, plavix, altace, coreg, hold statin due to elevated lfts; i advised patient to stop smoking and f/u with Tobias Dixon MD Mar 14, 2017 14:08
[2017-03-14 15:00] VITALS: BP 141/75; PULSE 77; RESP 12; TEMP 98.6; O2SAT 94
[2017-03-14] MEDS ORDERED: ASPI-516 CHEW ×2 (15:56→16:15)
[2017-03-14] MEDS ORDERED: PLAV75TA29 PO ×2 (15:56→16:15)
[2017-03-14] MEDS ORDERED: ALTA2.5C4 PO ×2 (15:56→16:14)
[2017-03-14] MEDS ORDERED: CARV3.125 PO ×3 (15:56→16:14)
--- NOTE | 2017-03-14 16:11 | EKG ---
Date Performed: 03/13/2017 Time Performed: 18:14:23 PTAGE: 61 years EKG: Sinus rhythm POSSIBLE LEFT ATRIAL ENLARGEMENT POSSIBLE LEFT VENTRICULAR HYPERTROPHY MARKED ST ELEVATION, CONSIDER INFERIOR INJURY ACUTE [place] NO PREVIOUS TRACING DOCTOR: Vidal Gipson Interpretating Date/Time 03/14/2017 16:11:04
--- NOTE | 2017-03-14 16:14 | EKG ---
Date Performed: 03/13/2017 Time Performed: 18:33:04 PTAGE: 61 years EKG: Sinus rhythm POSSIBLE LEFT VENTRICULAR HYPERTROPHY MARKED ST ELEVATION, CONSIDER INFERIOR INJURY ACUTE [place] comp[place] to PREVIOUS TRACING , acute inferior posterior Infarction changes are more significant. PREV IOUS TRACIN03/13/2017 18.14.23 DOCTOR: Vidal Gipson Interpretating Date/Time 03/14/2017 16:13:10
--- NOTE | 2017-03-14 16:16 | EKG ---
Date Performed: 03/13/2017 Time Performed: 22:24:12 PTAGE: 61 years EKG: CONSIDER ACUTE ST ELEVATION [place] Sinus rhythm Right bundle branch block Inferior and lateral ST elevation, CONSIDER ACUTE INFARCT When compared to previous tracing, evolving infarction changes Are noted. Abnormal ECG PREVIOUS TRACING : 03/13/2017 18.33 DOCTOR: Vidal Gipson Interpretating Date/Time 03/14/2017 16:15:49
--- NOTE | 2017-03-14 16:18 | EKG ---
Date Performed: 03/14/2017 Time Performed: 04:45:44 PTAGE: 61 years EKG: Sinus rhythm Right bundle branch block Inferior ST elevation - possible early repolarization When compared to pre vious tracing, inferior infarction changes Have continued to improve. Clinical corrolation is strongl y reccommended. Abnormal ECG PREVIOUS TRACING : 03/13/2017 22.24 DOCTOR: Vidal Gipson Interpretating Date/Time 03/14/2017 16:17:21
== END 2017-03-14 17:00 | disposition home or self-care (01) | DRG 249 ==
LOC: NEPC 17:37 → NEDA 18:37 → HCVI 20:10
PROVIDERS: ADMIT Internal Medicine Interventional Cardiology; ATTEND Internal Medicine Interventional Cardiology
PROC: 02703DZ Dilation of Coronary Artery, One Artery with Intraluminal Device, Percutaneous Approach (ICD-10-PCS; principal; 2017-03-13)
PROC: 4A023N7 Measurement of Cardiac Sampling and Pressure, Left Heart, Percutaneous Approach (ICD-10-PCS; 2017-03-13)
PROC: B2111ZZ Fluoroscopy of Multiple Coronary Arteries using Low Osmolar Contrast (ICD-10-PCS; 2017-03-13)
PROC: B2151ZZ Fluoroscopy of Left Heart using Low Osmolar Contrast (ICD-10-PCS; 2017-03-13)
DX: I21.19 ST elevation (STEMI) myocardial infarction involving other coronary artery of inferior wall (principal); F17.200 Nicotine dependence, unspecified, uncomplicated; I25.119 Atherosclerotic heart disease of native coronary artery with unspecified angina pectoris; R79.89 Other specified abnormal findings of blood chemistry
CPT/HCPCS: 71010; 80048; 80061; 80076; 82435; 82550; 82552; 82565; 82947; 83690; 83735; 83880; 84132; 84295; 84484; 84520; 85002; 85025; 85610; 85730; 92941; 93005; 93458; 96374; C1725; C1769; C1876; C1887; C1893; J1644; J3246; J7030; Q9967

== ENCOUNTER → 2017-04-23 | Outpatient (CLI) | payer OTHER ==
[~2017-04-23] MED LIST: ALTA2.5C4 PO; ASPI-516 CHEW; CARV3.125 PO; PLAV75TA29 PO
[2017-04-23 13:30] LABS: ALKALINE PHOSPHATASE 106 U/L (45-117); HDL CHOLESTEROL 36.6 MG/DL (40.0-60.0); TOTAL BILIRUBIN ADULT 0.3 MG/DL (0.2-1.0); TOTAL PROTEIN 7.6 GM/DL (6.4-8.2); TRIGLYCERIDES 159 MG/DL (42-150)
[2017-04-23 13:31] LABS: ALBUMIN 3.9 GM/DL (3.4-5.0); ALT (GPT) 29 U/L (12-78); AST (GOT) 18 U/L (15-37); BICARBONATE 27.8 MEQ/L (21.0-32.0); BLOOD UREA NITROGEN 17 MG/DL (7-18); CALCIUM 8.8 MG/DL (8.5-10.1); CHLORIDE 103 MEQ/L (98-107); CHOLESTEROL 272 MG/DL (120-200); CHOLESTEROL/ HDL RATIO 7.43 RATIO; CREATININE 1.08 MG/DL (0.60-1.30); DIRECT BILIRUBIN ADULT 0.1 MG/DL (0.0-0.2); GLOMERULAR FILTRATION RATE 70 ML/MIN (>89); GLUCOSE,FASTING 122 MG/DL (74-99); LDL CHOLESTEROL 204 MG/DL (0-99); SODIUM (NA) 137 MEQ/L (136-145)
== END ==
LOC: CLAB 12:35
PROVIDERS: ATTEND Internal Medicine Interventional Cardiology
DX: E78.5 Hyperlipidemia, unspecified (principal); Z79.899 Other long term (current) drug therapy
CPT/HCPCS: 36415; 80053; 80061; 82248; 82550

== ENCOUNTER → 2017-06-20 | Outpatient (CLI) | payer OTHER ==
[2017-06-20 11:26] LABS: ALKALINE PHOSPHATASE 147 U/L (45-117); ALT (GPT) 35 U/L (12-78); AST (GOT) 21 U/L (15-37); BICARBONATE 27.7 MEQ/L (21.0-32.0); BLOOD UREA NITROGEN 15 MG/DL (7-18); CALCIUM 8.9 MG/DL (8.5-10.1); CHLORIDE 104 MEQ/L (98-107); CHOLESTEROL 167 MG/DL (120-200); CHOLESTEROL/ HDL RATIO 4.69 RATIO; CREATININE 1.07 MG/DL (0.60-1.30); DIRECT BILIRUBIN ADULT 0.1 MG/DL (0.0-0.2); GLOMERULAR FILTRATION RATE 70 ML/MIN (>89); GLUCOSE,FASTING 133 MG/DL (74-99); HDL CHOLESTEROL 35.6 MG/DL (40.0-60.0); LDL CHOLESTEROL 106 MG/DL (0-99); SODIUM (NA) 139 MEQ/L (136-145); TOTAL BILIRUBIN ADULT 0.2 MG/DL (0.2-1.0); TRIGLYCERIDES 126 MG/DL (42-150)
== END ==
LOC: CLAB 10:18
PROVIDERS: ATTEND Internal Medicine Interventional Cardiology
DX: I25.10 Atherosclerotic heart disease of native coronary artery without angina pectoris (principal); E78.5 Hyperlipidemia, unspecified
CPT/HCPCS: 36415; 80053; 80061; 82248; 82550

== ENCOUNTER → 2017-10-01 | Outpatient (CLI) | payer OTHER ==
[2017-10-01 08:19] LABS: AST (GOT) 26 U/L (15-37); BICARBONATE 25.5 MEQ/L (21.0-32.0); BLOOD UREA NITROGEN 14 MG/DL (7-18); CALCIUM 9.1 MG/DL (8.5-10.1); CHLORIDE 105 MEQ/L (98-107); CREATININE 1.11 MG/DL (0.60-1.30); GLOMERULAR FILTRATION RATE 67 ML/MIN (>89); GLUCOSE,FASTING 166 MG/DL (74-99); SODIUM (NA) 138 MEQ/L (136-145)
[2017-10-01 08:20] LABS: ALT (GPT) 43 U/L (12-78); CHOLESTEROL 158 MG/DL (120-200); DIRECT BILIRUBIN ADULT 0.1 MG/DL (0.0-0.2); TRIGLYCERIDES 177 MG/DL (42-150)
[2017-10-01 08:23] LABS: ALKALINE PHOSPHATASE 134 U/L (45-117); CHOLESTEROL/ HDL RATIO 5.03 RATIO; HDL CHOLESTEROL 31.4 MG/DL (40.0-60.0); LDL CHOLESTEROL 91 MG/DL (0-99); TOTAL BILIRUBIN ADULT 0.2 MG/DL (0.2-1.0); TOTAL PROTEIN 7.5 GM/DL (6.4-8.2)
== END ==
LOC: CLAB 07:35
PROVIDERS: ATTEND Internal Medicine Interventional Cardiology
DX: E78.5 Hyperlipidemia, unspecified (principal); Z79.899 Other long term (current) drug therapy
CPT/HCPCS: 36415; 80053; 80061; 82248; 82550